=== PATIENT | female | born 1965 | race Two or more races ===

== ENCOUNTER 2023-09-13 21:56 | Emergency (ER) | payer BC, OTHER ==
[~2023-09-13] VITALS: Ht 157.5 cm; Wt 85.7 kg
[2023-09-13 22:34] LABS: *BILIRUBIN,URIN 2+ (NEGATIVE); *BLOOD, URINE NEGATIVE (NEGATIVE); *CLARITY,URINE CLEAR (CLEAR); *COLOR,URINE YELLOW (YELLOW); *KETONES,URINE 2+ (NEGATIVE); *PROTEIN,URINE 1+ (NEGATIVE); *UROBILINOGEN,URINE 0.2 E.U./dl (NORMAL); LEUKOCYTE ESTERASE ,URINE NEGATIVE (NEGATIVE); NITRITE, URINE NEGATIVE (NEGATIVE); UGLUCOSE NEGATIVE (NEGATIVE)
[2023-09-13] MEDS ORDERED: ONDANSETRON ODT 4 MG TAB.RAPDIS ONE (22:53)
[2023-09-13] MEDS: ONDANSETRON ODT 4 MG TAB.RAPDIS SL ONE (22:53)
[2023-09-14 00:02] LABS: BASOPHILS % (AUTO) 0.4 % (0.0-2.0); CALCIUM 9.4 mg/dL (8.5-10.1); CREATININE 0.8 mg/dL (0.6-1.3); EOSINOPHILS % (AUTO) 0.4 % (0.0-7.0); HEMATOCRIT 45.6 % (31.2-41.9); HEMOGLOBIN 14.9 g/dL (10.9-14.3); LYMPHOCYTES % (AUTO) 18.6 % (20.5-51.5); MEAN CORPUSCULAR HEMOGLOBIN 29.7 uug (24.7-32.8); MEAN CORPUSCULAR HGB CONC 33 g/dL (32.3-35.6); MEAN CORPUSCULAR VOLUME 90.8 fL (75.5-95.3); MONOCYTES # (AUTO) 0.8 K/uL (0.1-1.30); MONOCYTES % (AUTO) 7.5 % (0.0-11.0); NEUTROPHILS # (AUTO) 7.9 K/uL (1.8-8.9); NEUTROPHILS % (AUTO) 73.1 % (38.5-71.5); PLATELET COUNT (AUTO) 204 K/uL (179-408); POTASSIUM 3.3 mmol/L (3.5-5.1); RED BLOOD CELL COUNT(AUTO) 5.02 MIL/uL (3.63-4.92); RED CELL DISTRIBUTION WIDTH 14.2 % (12.3-17.7); WHITE BLOOD COUNT (AUTO) 10.7 K/uL (3.8-11.8)
[2023-09-14] MEDS: METOCLOPRAMIDE HCL 10 MG/2 ML VIAL IV ONE (00:18)
[2023-09-14] MEDS: IV NORMAL SALINE 1000 ML BAG IV ONE (00:18)
[2023-09-14] MEDS ORDERED: METO5TAB87 PO (02:13)
[2023-09-14 02:17] VITALS: BP 110/74; TEMP 210.6; O2SAT 95
== END 2023-09-14 02:18 | disposition home or self-care (01) ==
LOC: ER 22:00
DX: R11.2 Nausea with vomiting, unspecified (principal); Z79.899 Other long term (current) drug therapy
CPT/HCPCS: 99283; 80048; 81003; 83690; 85025; 36415; 96374; 96361; J2765; J7040; A4606; A4663; Q0162

== ENCOUNTER 2023-10-01 19:32 | Emergency (ER) | payer BC, OTHER ==
[~2023-10-01] VITALS: Ht 157.5 cm; Wt 86.2 kg
[~2023-10-01 19:32] MED LIST: METO5TAB87 PO
[2023-10-01 19:49] LABS: *BILIRUBIN,URIN NEGATIVE (NEGATIVE); *BLOOD, URINE 1+ (NEGATIVE); *CLARITY,URINE CLEAR (CLEAR); *COLOR,URINE YELLOW (YELLOW); *KETONES,URINE NEGATIVE (NEGATIVE); *PROTEIN,URINE NEGATIVE (NEGATIVE); *UROBILINOGEN,URINE 0.2 E.U./dl (NORMAL); LEUKOCYTE ESTERASE ,URINE 2+ (NEGATIVE); NITRITE, URINE NEGATIVE (NEGATIVE); UGLUCOSE NEGATIVE (NEGATIVE)
[2023-10-01 20:21] LABS: BACTERIA,URINE FEW /HPF (NONE SEEN); SQUAMOUS EPITHELIAL CELL,UR FEW /HPF (NONE SEEN); WBC,URINE 50-80 /HPF (0-3)
[2023-10-01] MEDS ORDERED: PHEN-705 PO (20:51)
[2023-10-01] MEDS ORDERED: DOXY100T2 PO (20:51)
[2023-10-01] MEDS ORDERED: DOXYCYCLINE HYCLATE 100 MG TABLET ONE (20:55)
[2023-10-01] MEDS ORDERED: PHENAZOPYRIDINE HCL 100 MG TABLET ONE (20:55)
[2023-10-01 20:59] VITALS: BP 122/75; TEMP 98.6; O2SAT 100
[2023-10-01] MEDS: DOXYCYCLINE HYCLATE 100 MG TABLET PO ONE (20:59)
[2023-10-01] MEDS: PHENAZOPYRIDINE HCL 100 MG TABLET PO ONE (20:59)
== END 2023-10-01 21:00 | disposition home or self-care (01) ==
LOC: ER 19:33
DX: N30.01 Acute cystitis with hematuria (principal); Z79.899 Other long term (current) drug therapy
CPT/HCPCS: A4606; A4663

== ENCOUNTER 2024-01-14 13:07 | Emergency (ER) | payer BC, OTHER ==
[~2024-01-14] VITALS: Ht 160 cm; Wt 81.6 kg
[~2024-01-14 13:07] MED LIST changes: +DOXY100T2 PO; +PHEN-705 PO
[2024-01-14] MEDS ORDERED: METOCLOPRAMIDE HCL 10 MG/2 ML VIAL ONE (15:51)
[2024-01-14 15:55] LABS: CALCIUM 9.9 mg/dL (8.5-10.1); CREATININE 0.8 mg/dL (0.6-1.3); POTASSIUM 3.3 mmol/L (3.5-5.1)
[2024-01-14 15:55] LABS: BASOPHILS # (AUTO) 0.1 K/UL (0.0-0.2); BASOPHILS % (AUTO) 0.6 % (0.0-2.0); EOSINOPHILS # (AUTO) 0.1 K/uL (0.0-0.7); EOSINOPHILS % (AUTO) 0.5 % (0.0-7.0); HEMOGLOBIN 15.7 g/dL (10.9-14.3); LYMPHOCYTES # (AUTO) 2.3 K/uL (0.8-4.8); LYMPHOCYTES % (AUTO) 22.2 % (20.5-51.5); MEAN CORPUSCULAR HEMOGLOBIN 30.8 uug (24.7-32.8); MEAN CORPUSCULAR HGB CONC 33 g/dL (32.3-35.6); MEAN CORPUSCULAR VOLUME 92.2 fL (75.5-95.3); MONOCYTES # (AUTO) 0.8 K/uL (0.1-1.30); MONOCYTES % (AUTO) 7.3 % (0.0-11.0); NEUTROPHILS # (AUTO) 7.3 K/uL (1.8-8.9); NEUTROPHILS % (AUTO) 69.4 % (38.5-71.5); PLATELET COUNT (AUTO) 178 K/uL (179-408); RED CELL DISTRIBUTION WIDTH 14.2 % (12.3-17.7); WHITE BLOOD COUNT (AUTO) 10.5 K/uL (3.8-11.8)
[2024-01-14 15:56] LABS: DIFFERENTIAL COMMENT 1
[2024-01-14] MEDS: IV NORMAL SALINE 1000 ML BAG IV ONE (15:57)
[2024-01-14] MEDS: METOCLOPRAMIDE HCL 10 MG/2 ML VIAL IV ONE (15:57)
[2024-01-14 16:02] LABS: ALBUMIN 4.1 g/dL (3.4-5.0); BILIRUBIN,DIRECT 0.3 mg/dL (0.0-0.2); BILIRUBIN,TOTAL 0.9 mg/dL (0.2-1.0); TOTAL PROTEIN, SERUM 8.4 g/dL (6.4-8.2)
[2024-01-14] MEDS ORDERED: POTASSIUM BICARBONATE/CIT AC 25 MEQ TABLET.EFF ONE (17:12)
[2024-01-14] MEDS: POTASSIUM BICARBONATE/CIT AC 25 MEQ TABLET.EFF PO ONE (17:15)
[2024-01-14] MEDS ORDERED: METO-295 PO (17:29)
[2024-01-14 17:46] VITALS: BP 110/80; TEMP 97.2; O2SAT 96
== END 2024-01-14 17:46 | disposition home or self-care (01) ==
LOC: ER 13:07
DX: R11.2 Nausea with vomiting, unspecified (principal); Z85.038 Personal history of other malignant neoplasm of large intestine; Z79.899 Other long term (current) drug therapy
CPT/HCPCS: 99283; 96374; 96361; 80076; 80048; 83690; 85025; 36415; J2765; J7040; A4606; A4663